=== PATIENT | female | born 1965 ===

== ENCOUNTER → 2021-01-11 07:55 | Outpatient (REF) | payer BC, SELFPAY | LOC: ANHLAB 07:55 | PROVIDERS: Visit Provider Nurse Practitioner | DX: C44.311 Basal cell carcinoma of skin of nose (principal) | CPT/HCPCS: 88305; 88331 ==

== ENCOUNTER 2023-02-27 13:34 | Outpatient (NON) | payer BC, SELFPAY | END 2023-02-27 13:35 | disposition home or self-care (01) | PROVIDERS: Visit Provider Nurse Practitioner | DX: C44.1191 Basal cell carcinoma of skin of left upper eyelid, including canthus (principal) | CPT/HCPCS: 88305; 88331 ==